=== PATIENT | female | born 1995 | race Caucasian/White ===

== ENCOUNTER → 2021-07-13 12:53 | Outpatient (CLI) | payer BC, SELFPAY ==
--- NOTE | ~2021-07-13 | XR_ITS ---
EXAMINATION: XR foot RT min 3V DATE: 07/13/2021 13:14 INDICATION: Right foot pain TECHNIQUE: Dorsoplantar, lateral, and oblique views of the right foot were obtained. COMPARISON: 02/20/2011 FINDINGS: There is cortical irregularity distal aspect of the third metatarsal shaft with the appeara nce of a healed fracture. No acute fracture is identified. The joint spaces are normal. The soft tiss ues are unremarkable. IMPRESSION: 1. No acute osseous abnormality. Reviewed, dictated and finalized at location A.
== END ==
DX: M79.673 Pain in unspecified foot (principal)
CPT/HCPCS: 73630

== ENCOUNTER 2022-09-10 08:06 | Emergency (ER) | payer BC, SELFPAY ==
--- NOTE | ~2022-09-10 | XR_ITS ---
EXAMINATION: XR chest 1V portable 09/10/2022 10:33 INDICATION: Chest pain PROCEDURE: AP portable chest COMPARISON: No prior studies for comparison. FINDINGS: The lungs are clear. The cardiomediastinal silhouette is within normal limits. There are no pleural effusions. There is no pneumothorax suspected. IMPRESSION: 1: NO ACUTE CARDIOPULMONARY DISEASE. Reviewed, dictated and finalized at location L.
[2022-09-10 08:09] VITALS: BP 105/76; PULSE 116; RESP 18; TEMP 36.8; O2SAT 98
[2022-09-10] MEDS: ONDANSETRON INJ 4 MG/2 ML VIAL IV PUSH (09:04)
[2022-09-10] MEDS: FAMOTIDINE 20 MG/2 ML VIAL IV PUSH (09:04)
[2022-09-10] MEDS: LACTATED RINGERS 1,000 ML 999 ML IV CONT (09:04)
[2022-09-10 09:10] LABS: Hemoglobin 15.2 g/dL (12.0-15.0); Mean Corpuscular HGB Conc 36.2 g/dl (32-36); Mean Corpuscular Hemoglobin 31.2 pg (26-34); Mean Corpuscular Volume 86.2 fl (80-100); Mean Platelet Volume 8.6 fl (7.4-10.4); Platelet Count Result 220 k/mm3 (150-375); Red Blood Count 4.87 M/mm3 (4.2-5.4)
[2022-09-10 09:17] LABS: Alanine Aminotransferase 24 U/L (6-35); Albumin Level 4.5 g/dL (3.5-5.1); Alkaline Phosphatase 59 U/L (38-126); Anion Gap 7 mmol/L (8-16); Aspartate Amino Transferase 28 U/L (14-36); Band Neutrophils Percent 6 % (0-6); Blood Urea Nitrogen 11 mg/dL (7-17); Calcium 8.5 mg/dL (8.4-10.2); Carbon Dioxide 28 mmol/L (22-30); Chloride 101 mmol/L (98-107); Estimated CRCL calculation 120 ml/min; Estimated Glomerular Filt Rate > 60; Glucose 111 mg/dL (65-110); Lipase 71 U/L (23-300); Lymphocytes Absolute Manual 0.44 K/mm3 (1.1-4.5); Monocytes Absolute Manual 0.55 K/mm3 (0.1-0.90); Monocytes Percent Manual 5 % (3-9); Neutrophils Absolute Manual 10.01 K/mm3 (1.7-7.2); Neutrophils Percent Manual 85 % (46-73); Potassium 3.8 mmol/L (3.4-5.0); Sodium 136 mmol/L (137-145); Total Cells Counted 100
[2022-09-10 09:18] LABS: Platelet Estimate Adequate (Adequate); Schistocytes None Seen (NORMAL)
[2022-09-10] MEDS: diphenhydrAMINE HCl INJ 50 MG/ML VIAL 25 MG IV PUSH (10:37)
[2022-09-10] MEDS: METOCLOPRAMIDE HCL INJ 10 MG/2 ML VIAL IV PUSH (10:37)
--- NOTE | 2022-09-10 11:07 | ED.ABDPAIN ---
HPI - Abdominal Pain General Chief Complaint: Abdominal Pain Stated Complaint: stomach pain Time Seen by Provider: 09/10/22 08:48 History of Present Illness HPI narrative: 27-year-old female presenting with nausea, vomiting, diarrhea, she was having bad epigastric pain today and felt like it was almost going to her back, she has had GERD before, tried taking Prilosec and Tums without much improvement. No focal numbness or weakness Related Data Allergies Allergy/AdvReac Type Severity Reaction Status Date / Time No Known Allergies Allergy Verified 09/10/22 08:13 Review of Systems Review of Systems: CONST: No fever. HEENT: No sore throat C/V: Slight lower chest discomfort RESP: No cough GI: Reports abdominal pain, nausea, vomiting[, diarrhea], hiccups : No dysuria. M/S: No joint pain. SKIN: No rash. NEURO: [No headache or focal numbness or weakness] PSYCH: [No depression] [facility] Family History Family History (Updated 05/01/22 @ 08:36 by Elvie Flores CMA) Grandparent Hypertension Social History Social History (Updated 05/01/22 @ 08:37 by Elvie Flores CMA) Smoking status: Never smoker Alcohol intake: never Substance use: never Living arrangements: other Additional living arrangements comments: fiance Occupation/Education: occupation Gender identity (if verbalized by the patient): Female Sexual Orientation (if Verbalized by the Patient): Straight or Heterosexual Exam Narrative: EXAMINATION OF ORGAN SYSTEMS/BODY AREAS: Constitutional: Vital signs per nursing GENERAL:[No acute distress, non-toxic appearing.] HEAD: Normal with no signs of head trauma. EYES: EOMI, conjunctiva normal ENT: Hearing grossly intact LUNGS: Nonlabored breathing. HEART: Tachycardic ABD: [Soft], [nontender to palpation] EXT: Normal range of motion SKIN: [No rashes or lesions.] NEURO: [Alert and oriented x 3. No gross focal sensory or strength deficits.] PSYCH: Normal affect Course Vital Signs Vital signs: Vital Signs Temperature 98.2 F 09/10/22 08:09 Pulse Rate 116 H 09/10/22 08:09 Respiratory Rate 18 09/10/22 08:09 Blood Pressure 105/76 09/10/22 08:09 Pulse Oximetry 98 09/10/22 08:09 Oxygen Delivery Room Air 09/10/22 08:09 Temperature 98.2 F 09/10/22 08:09 Pulse Rate 100 09/10/22 11:21 Respiratory Rate 100 H 09/10/22 11:21 Blood Pressure 103/68 09/10/22 11:21 Pulse Oximetry 18 L 09/10/22 11:21 Oxygen Delivery Room Air 09/10/22 08:09 MDM - Abdominal Pain MDM Narrative Medical decision making narrative: Electronic medical record was reviewed. Patient presented to the ED with complaint of epigastric abdominal pain, nausea and vomiting and diarrhea. Vitals notable for initial tachycardia. Physical exam revealed soft, nontender abdomen, patient in no acute distress, normal pulses, no neurovascular deficits. Based on the patient's history and physical exam, my differential includes but is not limited to [gastritis, gastroenteritis, doubt cholecystitis, pancreatitis, appendicitis without focal tenderness]. [IV access was established by nursing staff. Patient was given zofran, famotidine, IV fluids]. CBC, BMP, lipase, LFTs, bilirubin and alk phos were obtained. Labs were pertinent for very minimally elevated WBC at 11 otherwise normal. On reevaluation, the patient states that they are feeling much better. She is still having slight hiccups so I did give a dose of Reglan, and on reevaluation, she is feeling much better. Pain has resolved. There were no witnessed episodes of vomiting in the emergency department. They are not complaining of any new abdominal pain. Repeat examination did not show any significant guarding or rebound. No new tenderness. At this time I do not feel there is any further emergent treatment to be provided. The patient was given strict return precautions, if they are to develop any worsening abdominal pain, vomiting, or blood in the vomi
[2022-09-10 11:21] VITALS: BP 103/68; PULSE 100; RESP 100; O2SAT 18
--- NOTE | 2022-09-26 12:05 | PC.NURSE ---
LATE ENTRY This note is being entered to document information to the patient's record. The following information was omitted on [09/10/22], by [shirin riddle]. start 0904 end 1000
== END 2022-09-10 11:22 | disposition home or self-care (01) ==
PROVIDERS: Emergency Provider Emergency Medicine; PCP Physician Assistant
DX: R11.2 Nausea with vomiting, unspecified (principal); R10.13 Epigastric pain
CPT/HCPCS: 36415; 71045; 80053; 81025; 83690; 85025; 96361; 96374; 96375; 99284; J1200; J2405; J2765; J7120

== ENCOUNTER 2023-03-04 11:47 | Emergency (ER) | payer BC, SELFPAY ==
[2023-03-04 12:39] VITALS: BP 127/75; PULSE 107; RESP 16; TEMP 36.3; O2SAT 100
--- NOTE | 2023-03-04 12:59 | ED.URI ---
HPI - URI/Sore Throat General Chief Complaint: Upper Respiratory Infection Stated Complaint: sorethroat,congestion Time Seen by Provider: 03/04/23 12:45 Source: patient Mode of arrival: ambulatory Limitations: no limitations History of Present Illness HPI Narrative: Ginny is a year old female patient presenting to the clinic today with complaints of sore throat, congestion, and sinus pressure times 3 days. She denies any known fever but has had some chills. Denies any body aches. No chest pain or shortness of breath. MD elicited complaint: sore throat and nasal congestion Related Data Home Medications Medication Instructions Recorded Confirmed famotidine 20 mg tablet 20 mg PO PRN PRN Gastric Reflux 03/04/23 03/04/23 rimegepant 75 mg disintegrating 75 mg PO PRN PRN Migraine Headache 03/04/23 03/04/23 tablet (Nurtec ODT) Allergies Allergy/AdvReac Type Severity Reaction Status Date / Time No Known Allergies Allergy Verified 03/04/23 12:35 Review of Systems Review of Systems: Pertinent positives per HPI. Patient denies any fever, chills, rash, headache, visual changes, dizziness, cough, shortness of breath, chest pain, palpitations, nausea, vomiting, diarrhea, constipation, abdominal pain, or any urinary issues. PMFSH Family History Family History (Updated 05/01/22 @ 08:36 by Elvie Flores CMA) Grandparent Hypertension Social History Social History (Updated 05/01/22 @ 08:37 by Elvie Flores CMA) Smoking status: Never smoker Alcohol intake: never Substance use: never Living arrangements: other Additional living arrangements comments: fiance Occupation/Education: occupation Gender identity (if verbalized by the patient): Female Sexual Orientation (if Verbalized by the Patient): Straight or Heterosexual Comments At the time of my signature, I reviewed and agree with the nursing past medical, surgical, social, and family history. There is no relevant family history pertinent to the patient complaint. Exam Narrative: General: Well-developed, well nourished, in no apparent distress Head: Normocephalic, atraumatic Eyes: Pupils equally round and reactive to light bilaterally, EOM intact, sclera and conjunctive clear, no discharge, lids normal Ears: TMs intact and clear, ear canals clear, no drainage, grossly hearing normal. Nose: Nares patent, no discharge, no inflammation, no sinus tenderness. Mouth: Oral pharynx without lesions or masses, good dentition, MMM. Neck: Supple, trachea midline, no enlargement of anterior or posterior cervical nodes, no thyroid masses or goiter palpable. Cardio: Regular rate and rhythm, s1 and s2 normal, no murmur appreciated. Resp: Clear to auscultation bilaterally, no rhonchi, rales, wheezing or rubs Course Course Emergency Course: Portions of this record may have been created with voice recognition software. Level of Care: Express Care Visit Vital Signs Vital signs: Vital Signs Temperature 36.3 C L 03/04/23 12:39 Pulse Rate 107 H 03/04/23 12:39 Respiratory Rate 16 03/04/23 12:39 Blood Pressure 127/75 03/04/23 12:39 Pulse Oximetry 100 03/04/23 12:39 Oxygen Delivery Room Air 03/04/23 12:39 Temperature 36.3 C L 03/04/23 12:39 Pulse Rate 107 H 03/04/23 12:39 Respiratory Rate 16 03/04/23 12:39 Blood Pressure 127/75 03/04/23 12:39 Pulse Oximetry 100 03/04/23 12:39 Oxygen Delivery Room Air 03/04/23 12:39 Vital signs reviewed MDM - URI/Sore Throat MDM Narrative Medical decision making narrative: At the time of visit patient is resting comfortably on the exam table. Patient appears to be nontoxic. Strep and COVID testing was performed and negative in the clinic today. Supportive measures were discussed with the patient and they voiced understanding discharge instructions and agrees to treatment plan. Return precautions reviewed Differential Diagnosis Differential diagnosis: Likely upper
== END 2023-03-04 13:15 | disposition home or self-care (01) ==
PROVIDERS: Emergency Provider Nurse Practitioner Family; PCP Physician Assistant
DX: J06.9 Acute upper respiratory infection, unspecified (principal); J02.9 Acute pharyngitis, unspecified; Z20.822 Contact with and (suspected) exposure to COVID-19
CPT/HCPCS: 87081; 87426; 87880; 99213; C9803; G0463

== ENCOUNTER 2023-11-24 11:45 | Outpatient (CLI) | payer OTHER, SELFPAY ==
--- NOTE | ~2023-11-24 | CT_ITS ---
EXAMINATION: CT sinus wo con DATE: 11/24/2023 12:04 INDICATION: Chronic sinusitis. TECHNIQUE: Computed tomography (CT) of the paranasal sinuses was performed without intravenous contra st. Iterative reconstruction technique was employed. The dose-length product was 292.39 mGy-cm. COMPARISON: None FINDINGS: The frontal sinuses, ethmoid sinuses, sphenoid sinuses, and right maxillary sinus are clear . There is mild mucosal thickening in left maxillary sinus. There is leftward deviation of the nasal septum. There are bilateral Anali cells. The ostiomeatal units are patent. IMPRESSION: 1. Mild mucosal thickening in left maxillary sinus. 2. Leftward deviation of the nasal septum. Reviewed, dictated and finalized at location A.
== END 2023-11-24 11:46 ==
PROVIDERS: PCP Physician Assistant
DX: J32.9 Chronic sinusitis, unspecified (principal); J34.2 Deviated nasal septum
CPT/HCPCS: 70486